=== PATIENT | female | born 2000 | race Two or more races ===

== ENCOUNTER 2020-05-03 07:34 | Outpatient (REF) | payer OTHER, SELFPAY | END 2020-05-03 07:35 | disposition home or self-care (01) | LOC: HO.LAB 07:34 | PROVIDERS: Visit Provider Internal Medicine | DX: Z20.828 Contact with and (suspected) exposure to other viral communicable diseases (principal) | CPT/HCPCS: C9803; U0003 ==

== ENCOUNTER 2024-03-03 09:58 | Outpatient (REF) | payer OTHER, SELFPAY ==
[2024-03-03 11:44] LABS: Amylase 50 U/L (28-100)
[2024-03-03 11:47] LABS: Basophils Percent Auto 0.5 % (0-2); Eosinophils Absolute Auto 0.2 X10*3/uL (0.0-0.4); Eosinophils Percent Auto 2.4 % (0-4); Hematocrit 40.1 % (37.0-47.0); Hemoglobin 13.3 g/dl (12.0-16.0); Imm Gran Abs Auto 0.04 X10*3/uL (0.00-0.03); Imm Gran Pct Auto 0.5 % (0.0-0.4); Lymphocytes Absolute Auto 1.9 X10*3/uL (1.2-4.9); Lymphocytes Percent Auto 25.2 % (20-40); MANUAL DIFF FLAG SCAN; Mean Corpuscular HGB Conc 33.2 g/dl (31.0-35.0); Mean Corpuscular Hemoglobin 28.2 pg (27.0-33.0); Mean Corpuscular Volume 85.1 fL (80.0-98.0); Monocytes Absolute Auto 0.7 X10*3/uL (0.1-1.2); Neutrophils Absolute Auto 4.7 x10*3/uL (2.0-8.3); Neutrophils Percent Auto 62.4 % (45-73); PLT CLUMP 1; Red Blood Count 4.71 X10*6/uL (4.20-5.50); Red Cell Distribution Width 14.3 % (11.0-16.0); SCAN SMEAR FLAG 1
[2024-03-03 11:52] LABS: Estimated Average Glucose 103 mg/dL; Hemoglobin A1c % 5.2 % (<6.0)
[2024-03-03 12:16] LABS: Alanine Aminotransferase 10 U/L (0-31); Albumin Level 3.8 g/dL (3.5-5.0); Alkaline Phosphatase 68 U/L (39-117); Anion Gap 11 (12-20); Aspartate Amino Transferase 15 U/L (5-31); Bilirubin Total 0.2 mg/dL (0.0-1.0); Blood Urea Nitrogen 5 mg/dL (9-16); Calcium 9.2 mg/dL (8.4-10.2); Carbon Dioxide 21 mmol/L (22-29); Chloride 111 mmol/L (96-108); Cholesterol 169 mg/dL (<200); Estimated Glomerular Filt Rate > 60; Glucose Random 97 mg/dL (60-115); HDL Cholesterol 53 mg/dL (>40); Iron 31 mcg/dL (30-160); LDL Cholesterol Calculated 104 mg/dL (<100); Lipase 24 U/L (8-78); Percent Iron Saturation 10 % (15-50); Sodium 139 mmol/L (135-145); TSH reflex Free T4 0.32 uIU/mL (0.32-4.0); Total Iron Binding Capacity 299 mcg/dL (228-428); Total Protein 7.2 g/dL (6.5-8.0); Triglycerides 63 mg/dL (<150); Unsaturated Iron Binding 268 ug/dL
[2024-03-03 12:44] LABS: White Blood Count 7.6 X10*3/uL (4.8-10.8)
[2024-03-03 12:45] LABS: Mean Platelet Volume 12.7 fL (9.4-12.3); Platelet Count 204 X10*3/uL (160-400); SLIDE REVIEW VERIFIED
[2024-03-03 13:02] LABS: Reflex LDLD? No
== END 2024-03-03 09:59 | disposition home or self-care (01) ==
LOC: HO.HHCL 09:58
PROVIDERS: Referring Provider Internal Medicine; Visit Provider Family Medicine
DX: Z00.00 Encounter for general adult medical examination without abnormal findings (principal); R11.10 Vomiting, unspecified; R19.7 Diarrhea, unspecified; Z86.2 Personal history of diseases of the blood and blood-forming organs and certain disorders involving the immune mechanism
CPT/HCPCS: 36415; 80053; 80061; 82150; 83036; 83540; 83690; 84443; 85025

== ENCOUNTER 2024-09-20 13:45 | Outpatient (AMB) | payer OTHER, SELFPAY ==
[2024-09-20 13:52] VITALS: BP 118/60; PULSE 71; BMI 43.3
--- NOTE | 2024-09-20 13:52 | MHC.OFFVIS ---
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 She does not have any history of cardiovascular issues including coronary disease, myocardial infarction or cardiomyopathy or in fact anything cardiac related. She gets symptoms of chest pressure/discomfort that can happen any time. With or without activity. Essentially random occurrence without any specific provoking factors. Hence, she has been referred for evaluation. Otherwise, no other symptoms like shortness of breath, palpitations, dizzy spells, syncopal episodes. No family history of any cardiomyopathy or sudden cardiac . [facility] Surgical History H/O colonoscopy Family History Mother Diabetes Father No problems noted. Social History Alcohol intake: current Alcohol intake frequency: a few times a week Alcohol type: wine Patient Tobacco Use Status: Never used Tobacco Substance Use Type: Marijuana Review of Systems Const Reports excessive sweating and Denies weakness ENT Denies dizziness Card Reports chest pain, Denies chest pain with activity, Denies syncope, Denies rapid heart rate, Denies pedal edema, Denies edema, Denies leg edema, Denies lightheadedness, Denies palpitations, Denies dyspnea, Denies dyspnea on exertion and Denies orthopnea Resp Denies cough, Denies dyspnea and Denies dyspnea on exertion GI Denies hematochezia and Denies change in stool character Musc Denies abnormal gait, Denies muscle cramps, Denies muscle weakness, Denies numbness, Denies radiating pain into limb and Denies tingling Neuro Denies abnormal gait, Denies dizziness, Denies syncope, Denies numbness, Denies tingling and Denies weakness Endo Reports excessive sweating and Denies palpitations Physical Exam Vital Signs: Last Vital Signs Pulse 71 09/20/24 13:52 BP 118/60 09/20/24 13:52 BMI result Body Mass Index 43.3 Const General: comfortable and no acute distress Orientation/consciousness: patient oriented x3 HEENT Other: Unremarkable Head: Yes normal to inspection Neck Neck: Yes normal visual inspection Chest Chest palpation & inspection: normal inspection of the chest Resp Auscultation: clear to auscultation bilaterally Cardio Palpation: normal PMI Heart sounds: S1 normal heart sound present, S2 normal heart sound present, no gallops, no murmurs and no rubs GI Palpation (GI): Soft to palpation Back/Spine/Pelvis Other: unremarkable Skin General skin exam: no rashes or lesions noted Neuro General: patient oriented x3 Extrem General: Yes normal to inspection Psych Mental Status: mental status grossly normal Office Procedures EKG Details: EKG with underlying sinus rhythm at 71/Min; no significant ST-T changes and otherwise unremarkable[place] [address]-Ttoxvftznrslfemsz, Complete Assessment & Plan Assessment & Plan (1) Precordial chest pain: Code(s): R07.2 - Precordial pain Category: Medical Plan Atypical sounding nonexertional chest pain. We will get an echocardiogram to look for any cardiomyopathy, pericardial effusion extra. If this is within normal limits, then reassurance only. Orders: Orders CA echo transthoracic complete Today R07.2 - Precordial pain Coding Level of Care Code New Pt Level 3 (99574) Diagnoses Precordial chest pain R07.2 CPT Codes EKG - CPT: 31910-Ldurcuwsystnvithy, Complete ([id number])
--- OUTSIDE RECORDS SUMMARY | 2024-09-20 15:56 | XMS_ITS | Encounter Summary ---
Author Organization [facility] Address [address] [place] [address] Phone Care Team Providers Care Alarm Technician Name Role Phone Katty Manning MD Primary Care Provider [phone] Reason for Visit * Reason Comments Med Refill Encounter Details Date Type Department Care Team (Late st Contact Info) Description 12/28/2018 Refill [facility] [place] [address] [place] [address] Mitra Terry MD [address] [place] [address] Encounter for initial prescription of contraceptive pills Social History Tobacco Use Types Packs/Day Years Used Date Smoking Tobacco: Never Smokeless Tobacco: Never Comments:Never smoker Alcohol Use Standard Drinks/Week Comments No 0 (1 standard drink = 0.6 oz pur e alcohol) Comments No Sex and Gender Information Value Date Recorded Sex Assigned at Female 07/14/2021 9:46 AM EST Legal Sex Female 5:22 PM EDT Gender Identity Female 07/14/2021 9:46 AM EST Sexual Orientation Bisexual 06/10/2020 10 :49 AM EST documented as of this encounter Plan of Treatment Not on file documented as of this encounter Visit Diagnoses Diagnosis Encounter for initial prescription of contraceptive pills documented in this encounter Care Teams Alarm Technician Relationship Specialty Start Date End Date Katty Manning MD [address] [place] [address] PCP - General 01/22/17 12/07/22 documented as of this encounter
--- OUTSIDE RECORDS SUMMARY | 2024-09-20 15:56 | XMS_ITS | Patient Health Record ---
Author Organization [facility] Address [address] [place] [address] Care Team Providers Care Polisher Aluminum Name Role Phone YOHAN HANSEN Unavailable [phone] Allergies No Known Allergies Results Component Value Reference Range Notes Chlamydia/GC Amplification-1 27556 Reviewed date:12/02/2023 11:25:47 AM Interpretation: Performing Lab:[facility], [address], [address], [place], Phone - [phone], Director - [facility] Notes/Report: Clinical Information:CERVICAL Chlamydia trachomatis, AMINA Negative Negative Neisseria gonorrhoeae, AMINA Negative Negative PDF Report Reviewed date:12/02/2023 09:41:49 AM Interpretation: Performing Lab:[facility], [address], [address], [place], Phone - [phone], Director - [facility] Notes/Report: Clinical Information:CERVICAL Reason For Referral No Information Medications Medication SIG (Take, Route, Frequency, Duration) Notes Start Date End Date Status Plan B One-Step 1.5 MG as directed Orally 11/24/19 23 Not-Taking Immunizations Vaccine Route Administration Date Status Comme nts GARDASIL 9 IM Intramuscular 11/23/2022 Administered Social History Tobacco Use: Social History Observation Description Date Details (start date - stop date) Never Smoker NA - NA Tobacco Use/Smoking Question Answer Notes Are you a nonsmoker Alcohol Screen (Audit-C) Question Answer Notes Did you have a drink contain ing alcohol in the past year? Yes How often did you have a dri nk containing alcohol in the past year? 2 to 4 times a month (2 points) How many drinks did you have on a typical day when you were drinking in the past year? 1 or 2 drinks (0 point) How often did you have 6 or more drinks on one occasion in the past year? Less than monthly (1 point) Points 3 Interpretation Positive Sexual History Question Answer Notes Had sex in the past 12 months (vaginal, oral, or anal)? Yes with Both Men and Women Use protection? No Problems Problem Type SNOMED Code ICD Code Onset Dates Problem Status W/U Status Risk Notes Problem COVID-19 ([id number]) COVID-19 (U07.1) Active confirmed Vital Signs Temperature 96.9 degrees Fahrenheit 11/29/2023 Blood pressure diastolic 86 mm Hg 11/29/2023 Height 65 in 11/29/2023 Blood pressure systolic 110 mm Hg 11/29/2023 Weight 261 lbs 11/29/2023 BMI 43.43 kg/m2 11/29/2023 Encounters Encounter Location Date Provider Diagnosis [facility] [address] [place] [address] 11/29/2023 YOHANLucie PEREZHANSEN Encounter for gynecological examination (general) (routine) without abnormal findings Z01.419 ; Encounter for screening for infections with a predominantly sexual mode of transmission Z11.3 and High risk bisexual behavior Z72.53 Assessments Encounter Date Diagnosis (ICD Code) Assessment Notes Treatment Notes Treatment Clinical Notes Section Notes 11/29/2023 Encounter for screening for infections with a predominantly sexual mode of transmission (ICD-10 - Z11.3) 11/29/2023 Encounter for gynecological examination (general) (routine) without abnormal findings (ICD-10 - Z01.419) Discussed cervical cancer screening with cytology every 3 years as per ASCCP guidelines. Advised continued annual pelvic exams. Patient encouraged to increase her level of exercise. SBE technique encouraged/tau ght. Safe sexual practices and STI prevention discussed. 11/29/2023 High risk bisexual behavior (ICD-10 - Z72.53) Plan Of Treatment Next Appt Details Provider Name:YOHAN COPELAND Sonal, 12/04/2024 01:40:00 PM, [address], [address], [place], [address], Insurance Providers Payer Name Payer Address Payer Phone Subscriber Number Group Number Insured Name Patient Relationship to Insured Coverage Start Date Coverage End Date [facility] [address] [place] [address] [id number] PHIL EPPS Self - patient is the insured Medical (General) History Medical History History ICD Code COVID-19 U07.1 Surgical History Surgery Date(Month/Year) colonoscopy 09/2017 wisdom teeth extraction 01/2015
--- OUTSIDE RECORDS SUMMARY | 2024-09-20 15:56 | XMS_ITS | Encounter Summary ---
Author Organization [facility] Address [address] [place] [address] Phone Care Team Providers Care Frame Coverer Name Role Phone Katty Manning MD Primary Care Provider [phone] Reason for Visit * Reason Comments Med Refill Encounter Details Date Type Department Care Team (Late st Contact Info) Description 11/08/2017 Refill [facility] [place] [address] [place] [address] Jennifer Davenport NP [address] [address] Encounter for initial prescription of contraceptive pills [...] AM EST documented as of this encounter Miscellaneous Notes * Telephone Encounter - Katty Manning MD - 11/09/2017 5:11 PM EDT Script sent. PPP * Telephone Encounter - Claudette Pittman MA - 11/09/2017 10:41 AM EDT Please refill the BC. PE current and last refill pt was given 3 refills. Message to PPP. documented in this encounter Plan of Treatment Not on file documented as of this encounter Visit Diagnoses Diagnosis Encounter for initial prescription of contraceptive pills documented in this encounter Care Teams Frame Coverer Relationship Specialty Start Date End Date Katty Manning MD [address] [facility] [place] [address] PCP - General 01/22/17 12/07/22 documented as of this encounter
--- OUTSIDE RECORDS SUMMARY | 2024-09-20 15:56 | XMS_ITS | Encounter Summary ---
Author Organization [facility] Address [address] [place] [address] Phone Care Team Providers Care Financial Economist Name Role Phone Katty Manning MD Primary Care Provider [phone] Encounter Details Date Type Department Care Team (Late st Contact Info) Description 05/19/2011 Documentation [facility] [place] [address] [place], [place] [id number] Family Medicine, Physician [address] [place], [place] [address] Social History Tobacco Use Types Packs/Day Years Used Date Smoking Tobacco: Never Assessed Comments Unknown Sex and Gender Information Value Date Recorded Sex Assigned at Female 07/14/2021 9:46 AM EST Legal Sex Female 5:22 PM EDT Gender Identity Female 07/14/2021 9:46 AM EST Sexual Orientation Bisexual 06/10/2020 10 :49 AM EST documented as of this encounter Plan of Treatment Not on file documented as of this encounter Visit Diagnoses Not on filedocumented in this encounter Care Teams Financial Economist Relationship Specialty Start Date End Date Katty Manning MD [address] [place] [address] [place] [address] PCP - General 01/22/17 12/07/22 documented as of this encounter
--- OUTSIDE RECORDS SUMMARY | 2024-09-20 15:57 | XMS_ITS | Encounter Summary ---
Author Organization [facility] Address [address] [place] [address] Care Team Providers Care Nursing Support Worker Name Role Phone Delfina Sen MD Primary Care Provide r Reason for Referral * Consultation (Routine) - Authorized Specialty Diagnoses / Procedures Referred By Jazmyne zhao Referred To Contact Optometry Diagnoses Diminished vision Delfina Sen MD [address] [place] [address] Phone: tel: fax: [facility] [address] [place] [address] Phone: tel: fax: Referral ID Status Reason Start Date Expiration Date Visits Requested Visits Authorized [id number] Authorized Consult and Treat 09/15/2024 09/15/2025 1 1 * Consultation (Routine) - Authorized Specialty Diagnoses / Procedures Referred By Contshahzad t Referred To Contact Orthopaedic Surgery Diagnoses Right hip pain Delfina Sen MD [address] [place] [address] Phone: tel: fax: [facility] [address] [place] [address] [address] [place], [place] Phone: tel: fax: Referral ID Status Reason Start Date Expiration Date Visits Requested Visits Authorized [id number] Authorized Specialty Services Required 09/15/2024 09/15/2025 1 1 Reason for Visit * Reason Comments Follow-up Encounter Details Date Type Department Care Team ([facility] st Contact Info) Description 09/15/2024 9:45 AM EDT Office Visit [facility] [address] [place] [address] Delfina Sen MD [address] [place] [address] Right hip pain (Primary Dx); Gastroesophageal reflux disease, unspecified whether esophagitis present; Anxiety; Cervical cancer screening; Diminished vision Social History Tobacco Use Types Packs/Day Years Used Date Smoking Tobacco: Never Passive Smoke Exposure: Never Smokeless Tobacco: Never Tobacco Cessation:Counseling Given: Not Answered Alcohol Answer Date Recorded Frequency of Alcohol Consumption Not on file 01/21/2024 Average Number of Drinks Not on file 024 Frequency of Binge Drinking Not on file 02/2024 Score 0 01/21/2024 Depression Answer Date Recorded Patient Health Questionnaire-9 Score 8 01/21/2024 Patient Health Questionnaire-9 Score 8 01/21/2024 Last PHQ-9: Questionnaire Data Not on file 0 01/21/2024 Housing Stability Answer Date Recorded What is your housing situation today? I have carmela lopez 01/11/[address] you li ve. Do you have problems with any of the following? None of the above 01/11/2024 Food Insecurity Answer Date Recorded Within the past 12 months, y ou worried that your food would run out before you got money to buy more: Never True 01/11/2024 Within the past 12 months,th e food you bought just didn't last and you didn't have enough money to get more: Never True Transportation Answer Date Recorded In the past 12 months, has l ack of transportation kept you from medical appts, meetings, work or from getting things needed for daily living? No 01/11/2024 Utilities Answer Date Recorded In the past 12 months, has t he electric, gas, oil or water [employer] threatened to shut off services in your home? No 01/11/2024 Depression Answer Date Recorded Patient Health Questionnaire-2 Score 2 01/21/2024 Internet Access Answer Date Recorded Internet Access Q1 Yes 02/14/2024 Internet Access Q2 Not on file 02/14/2024 Comments Unknown Sex and Gender Information Value Date Recorded Sex Assigned at Female 04/13/2022 10:31 AM EDT Legal Sex Female 10:31 AM EDT Gender Identity Female 12/20/2023 9:30 AM EDT Sexual Orientation Straight 12/20/2023 9: 30 AM EDT documented as of this encounter Last Filed Vital Signs Vital Sign Reading Time Taken Comments Blood Pressure 135/82 09/15/2024 10:19 AM EDT Pulse 106 09/15/2024 9:37 AM EDT Temperature 36.6 ??C (97.8 ??F) 09/15/2024 9:37 AM E DT Respiratory Rate 18 09/15/2024 9:37 AM EDT Oxygen Saturation 96% 09/15/2024 9:37 AM EDT Inhaled Oxygen Concentration - - Weight 120 kg (264 lb 3.2 oz) 09/15/2024 9:37 AM EDT Height 165.1 cm (5' 5 ) 09/15/2024 9:37 AM EDT Body Mass Index 43.97 09/15/2024 9:37 AM EDT documented in this encounter Progress Notes * Delfina Danielle MD - 09/15/2024 9:45 AM EDT SUBJECTIVE: Myrna Owusu is a 24 y.o. year old female who presents for follow up . Patient reports she has been doing well, reports her anxiety is much better controlled she tells mechest pressure went completely away and her GERD is completely resolved now Acute Concerns: Today patient explains to me she has an on and off pain on her right hip on the inner groin area today she is asking for me to refer her to an orthopedics Social History Social History Narrative Not on file Patient Active Problem List Diagnosis Abnormal laboratory test result Routine adult health maintenance Anxiety disorder BMI 35.0-35.9,adult Elevated cholesterol Irritation of left eye Sensation of chest pressure GERD (gastroesophageal reflux disease) Encounter for preventive health examination Right hip pain Anxiety Cervical cancer screening Diminished vision No family history on file. Review of Systems Constitutional: Negative. HENT: Negative. Respiratory: Negative. Cardiovascular: Negative. OBJECTIVE: Vitals: 09/15/24 0937 09/15/24 1019 BP: (!) 145/93 135/82 BP Location: Left arm Left arm Patient Position: Sitting BP Cuff Size: Large adult Pulse: 106 Resp: 18 Temp: 97.8 ??F (36.6 ??C) TempSrc: Temporal SpO2: 96% Weight: 264 lb 3.2 oz (120 kg) Height: 5' 5 (1.651 m) Physical Exam Constitutional: Appearance: Normal appearance. Cardiovascular: Rate and Rhythm: Normal rate and regular rhythm. Pulmonary: Effort: Pulmonary effort is normal. Breath sounds: Normal breath sounds. Abdominal: General: Abdomen is flat. Palpations: Abdomen is soft. Musculoskeletal: General: No tenderness. Right lower leg: No edema. Left lower leg: No edema. Neurological: Mental Status: She is alert. Follow Up: No follow-ups on file. Current Outpatient Medications on File Prior to Visit Medication Sig Dispense Refill Multiple Vitamins-Minerals (HAIR VITAMINS PO) Hair Vitamins No current facility-administered medications on file prior to visit. Problem List Items Addressed This Visit Right hip pain - Primary I will order an x-ray of the hip and as per patient request I will refer her to orthopedics Relevant Orders XR Hip 2 or 3 Views Right Referral to Orthopaedic Surgery GERD (gastroesophageal reflux disease) I advise patient to avoid NSAIDs, spicy and acid food, I advise to eat at the same time every day, I advise to elevate the head of the bed and take medications as prescribe Anxiety Continue to follow-up with therapist Cervical cancer screening Patient follows with gynecology [facility] Dr Kelley Shi reports last PAP 2 years ago normal records will be obtain Diminished vision Relevant Orders Referral to [facility] documented in this encounter Miscellaneous Notes * Assessment & Plan Note - Delfina Danielle MD - 09/15/2024 10:20 AM EDT Associated Problem(s): Anxiety Continue to follow-up with therapist * Assessment & Plan Note - Delfina Danielle MD - 09/15/2024 10:20 AM EDT Associated Problem(s): Right hip pain I will order an x-ray of the hip and as per patient request I will refer her to orthopedics * Assessment & Plan Note - Delfina Danielle MD - 09/15/2024 10:20 AM EDT Associated Problem(s): GERD (gastroesophageal reflux disease) I advise patient to avoid NSAIDs, spicy and acid food, I advise to eat at the same time every day, I advise to elevate the head of the bed and take medications as prescribe * Assessment & Plan Note - Delfina Danielle MD - 09/15/2024 9:59 AM EDT Associated Problem(s): Cervical cancer screening Patient follows with gynecology [facility] Dr Kelley Shi reports last PAP 2 years ago normal records will be obtain documented in this encounter Plan of Treatment Scheduled Orders Name Type Priority Associated Diagnoses Orde r Schedule XR Hip 2 or 3 Views Right Imaging Routine Right hip pain Expected: 09/15/2024, Expires: 09/15/2025 Scheduled Referrals Name Type Priority Associated Diagnoses Order Schedule Referral to Orthopaedic Surgery Outpatient Referral Routine Right hip pain Expected: 09/15/2024 (Approximate), Expires: 09/15/[address] [facility] Outpatient Referral Routine Diminished vision Expected: 09/15/2024 (Approximate), Expires: 09/15/2025 documented as of this encounter Visit Diagnoses Diagnosis Right hip pain- Primary Pain in joint, pelvic region and thigh Gastroesophageal reflux disease, unspecified whether esophagitis present Anxiety Anxiety state, unspecified Cervical cancer screening Screening for malignant neoplasm of the cervix Diminished vision Unspecified visual loss documented in this encounter Additional Health Concerns Assessment Noted Time PHQ-9 Depression Total Score: 8 01/21/20 24 11:17 AM EDT documented as of this encounter Care Teams Nursing Support Worker Relationship Specialty Start Date End Date Delfina Sen MD [address] [place] [address] PCP - General Internal Medicine 01/24/24 documented as of this encounter
--- OUTSIDE RECORDS SUMMARY | 2024-09-20 15:57 | XMS_ITS | Encounter Summary ---
Author Organization [facility] Address [address] [place] [address] Phone Care Team Providers Care Information Technology Analyst Name Role Phone Katty Manning MD Primary Care Provider [phone] Encounter Details Date Type Department Care Team (Late st Contact Info) Description 02/10/2010 Documentation [facility] [place] Family Medicine [address] [place], [place] [phone] Family Medicine, Physician [address] [place], [place] [address] Social History Tobacco Use Types Packs/Day Years [...] on filedocumented in this encounter Care Teams Information Technology Analyst Relationship Specialty Start Date End Date Katty Manning MD [address] [place] [address] [place] [id number] PCP - General 01/22/17 12/07/22 documented as of this encounter
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
--- OUTSIDE RECORDS SUMMARY | 2024-09-20 15:57 | XMS_ITS | Patient Health Record ---
Author Organization [facility] Address [address] [place] [address] Care Team Providers Care Experimental Worker Name Role Phone Nigel BYRNE, Katty Primary Care Provider David Chavarria Unavailable [phone] Allergies Allergen (clinical drug ingredient) Drug/Non Drug Allergy documented on EMR Reaction Allergy Type Onset Date Status apple allergenic extract Apple (Diagnostic) Unknown Drug Allergy Active cantaloupe allergenic extract Cantaloupe (Diagnostic) Unknown Drug Allergy Active Reason For Referral No Information Medications Medication SIG (Take, Route, Frequency, Duration) Notes Start Date End Date Status Hair Vitamins Active Immunizations Vaccine Route Administration Date Status Comme nts COVID-19 Moderna Vaccine Unknown 10/17/2020 Administere d 1st 09/17/2020 Influenza Unknown 02/12/2021 Administered Social History Tobacco Use: Social History Observation Description Date Details (start date - stop date) Never Smoker NA - NA Tobacco Use/Smoking Question Answer Notes Are you a: nonsmoker Additional Findings: Tobacco Non-User Current no n-smoker Alcohol Screen Question Answer Notes Did you have a drink containing alcohol in the p ast year? No Points 0 Interpretation Negative Tobacco use other than smoking: Question Answer Notes Are you an other tobacco user? No Plan Of Treatment No Information Insurance Providers Payer Name Payer Address Payer Phone Subscriber Number Group Number Insured Name Patient Relationship to Insured Coverage Start Date Coverage End Date [facility] [address] [place] [address] [id number] Myrna Owusu Self - patient is the insured Medical (General) History Medical History History ICD Code Anemia Anxiety Depression high Cholesterol Surgical History Surgery Date(Month/Year)
--- OUTSIDE RECORDS SUMMARY | 2024-09-20 15:57 | XMS_ITS | Encounter Summary ---
Author Organization [facility] Address [address] [place] [address] Care Team Providers Care Production Boring Machine Operator Name Role Phone Delfina Sen MD Primary Care Provide r Encounter Details Date Type Department Care Team (Latest Contact Info) Description 09/15/2024 Travel Social History Tobacco Use Types Packs/Day Years Used Date Smoking Tobacco: Never Passive Smoke Exposure: Never Smokeless Tobacco: Never Alcohol Answer Date Recorded Frequency of Alcohol [...] AM EDT documented as of this encounter Plan of Treatment Not on file documented as of this encounter Visit Diagnoses Not on filedocumented in this encounter Additional Health Concerns Assessment Noted Time PHQ-9 Depression Total Score: 8 01/21/20 24 11:17 AM EDT documented as of this encounter Care Teams Production Boring Machine Operator Relationship Specialty Start Date End Date Delfina Sen MD [address] [place] [address] PCP - General Internal Medicine 01/24/24 documented as of this encounter
--- OUTSIDE RECORDS SUMMARY | 2024-09-20 15:57 | XMS_ITS | Clinical Summary ---
Author Organization [facility] Address [address] [place] [id number] Phone Care Team Providers Care Assessment Counselor Name Role Phone Unavailable Primary Care Provider Unavailabl e Allergies Active Allergy Reactions Criticality Noted Date Comments Apple (Diagnostic) Rash Low 05/21/2021 Cantaloupe (Diagnostic) Rash Low 05/21/2021 Medications Multiple Vitamins-Minerals (HAIR VITAMINS PO) A ctive erythromycin ophthalmic ointment 07/10/2021 Active minoxidil 2.5 MG tablet 06/18/2021 Active Active Problems Problem Noted Date Diagnosed Date BMI 35.0-35.9,adult 02/20/2021 Assessment & Plan (02/20/2021 4:41 PM EDT): Good you have lost weight. Should see Cyndi Allen in consultation Elevated cholesterol 07/04/2020 Overview (07/04/2020): Jun 2020 Non HDL 130. Advised healthy eating and exercise Assessment & Plan (02/20/2021 4:38 PM EDT): Should recheck, is trying to eat healthier. Anxiety disorder 06/27/2020 Immunizations Immunization Administration Dates Next Due COVID-19 Pfizer, lisa-sucros e, 12+ years 07/14/2021 DTaP 5 01/21/2006, 2,02/24/2001,12/28,2000 HPV, Quadrivalent 07/20/2012,03/18/2012,01/13/20 12 Hep A, ped/adol 04/27/2014,12/22/2010 Hep B, ped/adol 02/24/2001,2000,2000 Hib (PRP-T) 12/08/2001, 1,2000,10/26 IPV 01/21/2006, 2,2000,10/26 Influenza Split 04/18/2012 Influenza, injectable, quadr ivalent, preservative free 02/20/2021,06/10/2020 Influenza, injectable, triva lent, preservative free 02/12/2021 MMR 01/23/2005,09/07/2001 Meningococcal Conj (Menactra) MCV4P 06/22/2017,0 01/13/2012 Pneumococcal Conjugate 02/24/2001,2000, Tdap 01/13/2012 Varicella 11/26/2008,09/07/2001 Family History Medical History Relation Name Comments Obesity Father Pierre Obesity Mother Rachell Relation Name Status Comments Brother Landon Alive Brother: Alive and well Father Pierre Alive Father: Alive a nd well Mother Rachell Alive Mother: Alive a nd well Other Family history of Obesity, No family history of *Thrombophilia, No family history of *CVA/Stroke, Family history of Diabetes mellitus, No family history of *Heart Disease, No family history of *Dental caries, Family history of Strabismus/amblyopia, No family history of *Sudden /VA under 55 Social History Tobacco Use Types Packs/Day Years Used Date Smoking Tobacco: Never Smokeless Tobacco: Never Tobacco Cessation:Counseling Given: Yes Comments:Never smoker Alcohol Use Standard Drinks/Week Comments No 0 (1 standard drink = 0.6 oz pur e alcohol) Hunger/Food Answer Date Recorded In the last 12 months, did y ou or your family ever eat less than you felt you should because there wasn't enough money for food? No 07/14/2021 Stable Housing Answer Date Recorded Are you worried that in the next 2 months you may not have stable housing? No 07/14/2021 Transportation Concerns Answer Date Rec orded In the last 12 months, have you or your family ever had to go without healthcare because you didn't have a way to get there? No 07/14/2021 Hazards in Home Answer Date Recorded Think about the place you li ve. Do you have problems with any of the following? Pests (mice or roaches), mold, no/not working smoke detectors, water leaks, no window guards. No 2021 Financing Utilities Answer Date Recorde d In the last 12 months, has t he electric, gas, oil, or water company threatened to shut off your services in your home? No 07/14/2021 Safety at Home Answer Date Recorded Are you or your family worried about feeling saf e in your home? No 07/14/2021 Outside Support Answer Date Recorded Do you feel that you need mo re support from other people or programs to help you care for yourself or your family? No 07/14/2021 Understanding Health Concerns Answer Da te Recorded Do you need help understandi ng your or your child's healthcare needs (diagnosis, medications, plan, etc.)? No 07/14/2021 Financing Health Concerns Answer Date R ecorded In the last 12 months, was t here a time when your child needed to see a doctor or get medications or supplies but could not because of cost? No 07/14/2021 Missing School or Work Answer Date Donis rded Did you or your child miss s chool or work because of a health problem that could have been avoided? No 07/14/2021 Comments No Sex and Gender Information Value Date Recorded Sex Assigned at Female 07/14/2021 9:46 AM EST Legal Sex Female 5:22 PM EDT Gender Identity Female 07/14/2021 9:46 AM EST Sexual Orientation Bisexual 06/10/2020 10 :49 AM EST Last Filed Vital Signs Vital Sign Reading Time Taken Comments Blood Pressure 119/77 07/14/2021 9:10 AM EST Pulse 88 07/14/2021 9:10 AM EST Temperature 36.2 ??C (97.1 ??F) 07/14/2021 9:10 AM ES T Respiratory Rate - - Oxygen Saturation - - Inhaled Oxygen Concentration - - Weight 95.2 kg (209 lb 12.8 oz) 07/14/2021 9:10 AM EST Height 163 cm (5' 4.17 ) 07/14/2021 9:10 AM EST Body Mass Index 35.82 07/14/2021 9:10 AM EST Plan of Treatment Health Maintenance Due Date Last Done Comments DTaP,Tdap,and Td Vaccines (7 - Td or Tdap) 01/12/2022 01/13/2012, 01/21/2006, 03/07/2002, Additional history exists HIV Screening 07/14/2022 07/14/2021 Syphilis Screening (consider for higher risk patients) 07/14/2022 07/14/2021 Influenza Vaccines (#1) 2024 04/06/20 22, 02/20/2021, 02/12/2021, Additional history exists COVID-19 Vaccine ( season) 2024 07/14/2021, 10/17/2020, 09/17/2020 Hepatitis B Vaccines Completed 02/24/2001, 2000, 2000 Pneumococcal Vaccine Aged Out 02/24/2001, 2000, 2000 No longer eligible based on patient's age to complete this topic HIB Vaccines Completed 12/08/2001, 02/12, 2000, Additional history exists MMR Vaccines Completed 01/23/2005, 09/07/2001 IPV Vaccines Completed 01/21/2006, 11/13, 2000, Additional history exists Varicella Vaccines Completed 11/26/2008, 09/07/2001 HPV Vaccines Completed 07/20/2012, 10/2011, 01/13/2012 Hepatitis A Vaccines Completed 04/27/2014, 12/23/19 11 Meningococcal Vaccine Completed 06/22/2017, 012 Men B Vaccine Aged Out No longer elig ible based on patient's age to complete this topic Procedures * Due to [place] [employer] law, this organization might not be sharing sensitive test results. Procedure Name Priority Date/Time Associated Diagnosis Comments RPR Routine 07/14/2021 10:20 AM EST Routine screening for STI (sexually transmitted infection) CHLAMYDIA AND GONORRHEA, AMPLIFIED Routine 07/14/2021 10:06 AM EST Encounter for screening examination for chlamydial infection from Last 3 Months or Most Recently Relevant to Health Maintenance Results * Due to [place] [employer] law, this organization might not be sharing sensitive test results. * RPR (07/14/2021 10:20 AM EST) SYPHILIS SCREEN BY MUMTAZ NEGATIVE (NEG) [facility] Comment: Reference range: Negative This test was performed on the [employer] Analyst immunoassay system. RPR Titer NOT INDICATED [facility] T pallidum Antibodies (TP-PA) NOT INDICATED [facility] SYPHILIS INTERPRETATION Indicative of the absence of infection with Treponemal pallidum. Test may be negative in cases of incubating or early primary syphilis. Consider repeat testing in several weeks if clinical suspicion is high. [facility] Comment: Testing performed or reported by [facility], a Service of [facility] [address], [place] [address] Newton Tilley MD, Pin Machine Tender [facility]# [id number] Blood (Blood, Venous) 07/14/2021 10:20 AM EST 07/14/2021 10:31 AM EST us Thi De León MANAGER BILLING LAB BLOOD ORDERABLES Final Resul t [facility] * Chlamydia and Gonorrhoea, Amplified (07/14/2021 10:06 AM EST) Pathologist [facility] Chlamydia Trachomatis, DNA Probe NEGATIVE (NEG) [facility] Comment: No Chlamydia Trachomatis RNA detected in this patient's sample ? (REFERENCE RANGE/NORMAL VALUE: NOT DETECTED) ? Note: This test uses hat ironer- mediated amplification method to detect rRNA from C. Trachomatis URINE GC AMP PROBE NEGATIVE (NEG) [facility] Comment: No Neisseria Gonorrhoeae RNA detected in this patient's sample ? (REFERENCE RANGE/NORMAL VALUE: NOT DETECTED) ? NOTE: This test uses hat ironer-mediated amplification method to detect rRNA from N.Gonorrhoeae. A negative result does not preclude infection. In the case of a negative urine result, testing of an endocervical(female) or urethral (male) specimen is recommended if there is high clinical suspicion of infection. Due to very high sensitivity of Nucleic Acid Amplification Test, false positive results may occur. Therefore, specimen handling is extremely important. In patients in whom the disease is unlikely, additional sample for testing should be considered after an initial positive result. The performance characteristics of this test have not been evaluated in children. The Aptima Combo2 assay is not intended for the evaluation of suspected sexual abuse or for other medico-legal indications. The ordering provider should assess if the patient had consensual sex without risk of sexual abuse. Consult the [facility] if needed. Contact phone number . Therapeutic failure or success cannot be determined with the Aptima Combo2 assay since nucleic acid may persist following appropriate antimicrobial therapy. The Centers for Disease Control and Prevention (CDC) recommends confirmatory retesting using culture or a different nucleic acid amplification test when positive results occur, if indicated. Testing performed or reported by [facility], a Service of [facility], [facility] [address], [place] [address] Newton Tilley MD, Pin Machine Tender [facility]# [id number] Urine (Urine) 07/14/2021 10: 06 AM EST 07/14/2021 5:24 PM EST us Thi De León NP LAB MICROBIOLOGY - GENERAL ORDER JOSÉ Final Result [facility] from Last 3 Months or Most Recently Relevant to Health Maintenance
--- OUTSIDE RECORDS SUMMARY | 2024-09-20 15:57 | XMS_ITS | Encounter Summary ---
Author Organization [facility] Address [address] [place] [id number] Phone Care Team Providers Care Corrugator Machine Operator Name Role Phone Katty Manning MD Primary Care Provider [phone] Encounter Details Date Type Department Care Team (Late st Contact Info) Description 05/18/2012 Documentation [facility] Family Medicine [address] [place], [place] [id number] Family Medicine, Physician [address] [place], [place] [id number] Social History Tobacco Use Types Packs/Day Years [...] on filedocumented in this encounter Care Teams Corrugator Machine Operator Relationship Specialty Start Date End Date Katty Manning MD [address] [place] [address] [place] [id number] PCP - General 01/22/17 12/07/22 documented as of this encounter
--- OUTSIDE RECORDS SUMMARY | 2024-09-20 15:57 | XMS_ITS | Data Portability ---
Author Organization [facility]RAYAN Lucas s, [address] Address [address] [place] [address] Assessment No assessment recorded. Plan of Treatment Reminders Order Date Submit Date Provider Last Modified By Organization Details Last Modified Time Details Appointments None recorded. Lab None recorded. Referral None recorded. Procedures None recorded. Surgeries None recorded. Imaging XR, foot, 3 or more view 2022 023 JETHRO [facility], [address] [place] [address], [address], 15:58:52 Medication Orders ibuprofen 800 mg tablet 2022 023 [email or web address] [id number], [address] [facility], [place], [address], 14:40:38 Patient TargetsNo targets recorded. Patient Instructions Encounter Date Encounter Id Patient Instructions Last Modified By Organization Details Last Modified Time 07/06/2022 [id number] learning about rice (rest, ice, compression, and elevation) [email or web address] Not available 07/06/2022 13:42:38 What is a toe fracture? A fracture is another word for a broken bone. A toe fracture is when a person breaks a bone in the toe (figure 1). There are different types of toe fractures. The type of toe fracture depends on which toe bone breaks and how it breaks. What are the symptoms of a toe fracture? Symptoms of a toe fracture can include: ? Pain ? Swelling ? Bruising ? Trouble walking ? A crooked-looking toe Is there a test for a toe fracture? Yes. Your doctor or nurse will ask about your symptoms and do an exam. They can also order imaging tests like an X-ray or ultrasound. (Imaging tests create pictures of the inside of the body.) How is a toe fracture treated? Treatment depends on the type of toe fracture you have and how severe it is. Treatment for a toe fracture usually involves: ? Resting your foot ? Raising your foot above the level of your heart, for example, by propping it up on pillows ? This is helpful only for the first few days after an injury. ? Putting ice on your toe ? Put a cold gel pack, bag of ice, or bag of frozen vegetables on the toe every 1 to 2 hours, for 15 minutes each time. Put a thin towel between the ice (or other cold object) and your skin. Use the ice (or other cold object) for at least 6 hours after the injury. Some people find it helpful to ice up to 2 days after the injury. ? Martin taping (figure 2) ? This involves taping the injured toe to the toe next to it. The doctor or nurse will put some cotton or other soft material between your toes so they don't rub together. ? Wearing a cast, special hard-soled shoe, or rigid boot ? Most people can put weight on their foot and walk around while wearing a cast. Before your doctor puts a cast on your foot, they will make sure your toe bones are in the correct position. If your bones are not in the correct position, they might need to do a procedure to put your bones back in the correct position. Your doctor will also treat your pain. If you have a lot of pain or a severe fracture, your doctor will prescribe a strong pain medicine. If your fracture is mild, your doctor might recommend that you take an apac-uak-hovoyvq pain medicine. Gcsx-xfl-lehynyw pain medicines include acetaminophen (sample brand name: Tylenol), ibuprofen (sample brand names: Advil, Motrin), and naproxen (sample brand name: Aleve). How long does a toe fracture take to heal? A toe fracture usually takes weeks to heal, depending on the type of fracture. Healing time also depends on the person. Healthy children usually heal much more quickly than older adults or adults with other medical problems. Can I do anything to improve the healing process? Yes. It's important to follow all of your doctor's instructions while your fracture is healing. This includes instructions about when you can put weight on your foot. Doctors also usually recommend that people with a fracture: ? Eat a healthy diet that includes getting enough calcium, vitamin D, and protein (figure 3). ? Avoid getting the cast wet, if it's a cast that shouldn't get wet. ? Stop smoking. Fractures can take longer to heal if you smoke. When should I call my doctor or nurse? After treatment, your doctor or nurse will tell you when to call them. In general, you should call if: ? You have severe pain in your foot or leg. ? Your pain, swelling, or bruising gets worse. ? You have numbness or tingling in your toes. ? You damage your cast or get it wet, and it's not supposed to get wet. ? Your cast is too tight or too loose. information from ([facility], 2021) [email or web address] Not available 07/06/2022 13:36:35 Overview Foot injuries that cause pain and swelling are fairly common. Almost all sports or home repair projects can cause a misstep that ends up as foot pain. Normal wear and tear, especially as you get older, also can cause foot pain. Most minor foot injuries will heal on their own, and home treatment is usually all you need to do. If you have a severe injury, you may need tests and treatment. Follow-up care is a bowie part of your treatment and safety. Be sure to make and go to all appointments, and call your doctor or nurse advice line (811 in most provinces and territories) if you are having problems. It's also a good idea to know your test results and keep a list of the medicines you take. How can you care for yourself at home? Take pain medicines exactly as directed. If the doctor gave you a prescription medicine for pain, take it as prescribed. If you are not taking a prescription pain medicine, ask your doctor if you can take an qmrs-qun-yjxappm medicine. Rest and protect your foot. Take a break from any activity that may cause pain. Put ice or a cold pack on your foot for 10 to 20 minutes at a time. Put a thin cloth between the ice and your skin. Prop up the sore foot on a pillow when you ice it or anytime you sit or lie down during the next 3 days. Try to keep it above the level of your heart. This will help reduce swelling. Your doctor may recommend that you wrap your foot with an elastic bandage. Keep your foot wrapped for as long as your doctor advises. If your doctor recommends crutches, use them as directed. Wear roomy footwear. As soon as pain and swelling end, begin gentle exercises of your foot. Your doctor can tell you which exercises will help. When should you call for help? Call 911 anytime you think you may need emergency care. For example, call if: Your foot turns pale, white, blue, or cold. Call your doctor or nurse advice line now or seek immediate medical care if: You cannot move or stand on your foot. Your foot looks twisted or out of its normal position. Your foot is not stable when you step down. You have signs of infection, such as: Increased pain, swelling, warmth, or redness. Red streaks leading from the sore area. Pus draining from a place on your foot. A fever. Your foot is numb or tingly. Watch closely for changes in your health, and be sure to contact your doctor or nurse advice line if: You do not get better as expected. You have bruises from an injury that last longer than 2 weeks. [email or web address] Not available 07/06/2022 13:35:10 Reason for Referral None Reported. Results Created Date Observation Date Name Description Value Unit Range Abnormal Flag Note LastModifiedBy Organization Detail LastModifiedTime 07/06/1907/06/2022 XR, foot, 3 or more view No observ ation record ed. [email or web address] [facility] [address] [place], [address], 07/07/2022 17:52:45 07/08/1907/06/2022 XR, foot, 3 or more view No observ ation record ed. [email or web address] [facility] [address] [place], [address], 07/08/2022 16:06:03 07/08/1907/06/2022 imagi ng/di ginaos tic resul t No observ ation record ed. [email or web address] Not Available 2022 16:25:21 Result Notes None recorded. Problems No Known Problems Procedures Surgical History Date Name Laterality Status Provider Name and Address Organization Details Recorded Time Roel Bandage completed Rigoruby Nava, OCEANOGRAPHER PHYSICAL [address], [place], [address], [place] - [facility] 07/06/2022 14:37:46 Imaging Results Imaging Date Name Status LastModified by Organiz ation Details LastModified Time 07/06/2022 XR, foot, 3 or more view completed [email or web address] [facility] [address] [place], [address], 07/07/2022 17:52:45 07/06/2022 XR, foot, 3 or more view completed [email or web address] [facility] [address] [place], [address], 07/08/2022 16:06:03 07/06/2022 imaging/diag nostic result completed [email or web address] Information not available 07/08/2022 16:25:21 Procedure Notes None recorded. Medical Equipment None Reported. Allergies No known drug allergies Medications Name Sig Start Date Stop Date Status Note LastModified by Organization Details LastModified Time ibuprofen 800 mg tablet Take 1 tablet 3 times a day by oral route with meals for 7 days. 023 active Not Available Not Available Not Avai lable Vitals Date Recorded Body height Body mass index (BMI) Body weight Oxygen saturation Oxygen saturation in Arterial blood by Pulse oximetry Heart rate Respiratory rate Body temperature Systolic blood pressure Diastolic blood pressure Provider Name and Address Organization Details Last Updated DateTime 3 165.1 cm 38.3 kg/m2 905146. 25 g 99 % 99 % 70 /min 20 /min 98.2 [degF] 125 mm[Hg] 91 mm[Hg] Karoline Fitzpatrick PA - [facility] 12:10:31 Social History Question Answer Notes LastModified by Organfranciaat ion Details LastModified Time Tobacco Smoking Status Never Smoker Karoline dorman [place] - [facility] 07/06/2022 12:08:21 What Is Your Level Of Alcohol Consumption? Occasional Information not available 07/06/2022 How Many Times Per Week Do You Consume Alcohol? <1 Time Per Week Information not available 07/06/2022 Have You Had Direct Contact, Or Contact During Intimacy, With Monkeypox Rash, Scabs, Or Body Fluids From A Person With Monkeypox? No Information not available 07/06/2022 Do You Use Any Illicit Or Recreational Drugs? No Information not available 07/06/2022 Have You Recently Traveled Abroad? No Information not available 07/06/2022 Do You Or Have You Ever Used Any Other Forms Of Tobacco Or Nicotine? No Information not available 07/06/2022 Sex: Unknown Functional Status None recorded. Mental Status None recorded. Family History Relationship Description Onset Age of this Age Resolved Age Notes LastModified by Organization Details LastModified Time Father No current problems or disability Not available 07/06 12:08:11 Mother No current problems or disability Not available 07/06 12:08:11 Medical History No medical history recorded. Gynecological HistoryNo gynecological history recorded. Obstetrics History GPAL:G 0 P 0 0 0 0 Immunizations Vaccine Type Date Status Note Provider Nam e and Address Organization Details Recorded Time meningococcal MCV4P 8 completed Karoline Anadarko null, [place] - [facility] 07/06/2022 12:08:00 COVID-19, mRNA, LNP-S, PF, 100 mcg/0.5mL dose or 50 mcg/0.25mL dose 1 completed Karoline Nanette null, [place] - [facility] 07/06/2022 12:08:00 COVID-19, mRNA, LNP-S, PF, 100 mcg/0.5mL dose or 50 mcg/0.25mL dose 1 completed Karoline Nanette null, [place] - [facility] 07/06/2022 12:08:00 Influenza, MDCK, quadrivalent, PF 2 completed Karoline Nanette null, [place] - [facility] 07/06/2022 12:08:00 Influenza, split virus, quadrivalent, PF 1 completed Karoline Nanette null, [place] - [facility] 07/06/2022 12:08:00 Influenza, split virus, quadrivalent, PF 0 completed Karoline Anadarko null, [place] - [facility] 07/06/2022 12:08:00 COVID-19, mRNA, LNP-S, PF, 30 mcg/0.3 mL dose, lisa-sucrose 2 completed Karoline Nanette null, [place] - [facility] 07/06/2022 12:08:00 Past Encounters Encounter ID Performer Location Encounter Start Date Encounter Closed Date Diagnosis/Indication Diagnosis SNOMED-CT Code Diagnosis ICD10 Code Diagnosis Note [id number] [address] [place] [address] 04/06/2022 11:13:18 04/06/2022 11:34:09 [id number] [address] [place] [address] 05/18/2015 13:01:46 05/18/2015 14:11:34 [id number] [address] [place] [address] 04/06/2022 08:40:15 04/06/2022 11:34:06 [id number] Rigo Nava, SHARIF [address] [place] [address] 07/06/2022 11:21:03 07/06/2022 14:50:58 Contusion of left foot [id number] 1473658 S90.32XA Contusion of lesser toe of left foot 2758680476 0365190 S90.122A Health Concerns Section Related Observation LastModified by Organization Detai ls LastModified Time None Recorded Concern Status LastModified by Organization Details LastModified Time None Recorded Advance Directives Directive None Recorded Payers Encounter Date Sequence Insurance Name Policy Number Policy Hazel Covered Member ID Hazel Member ID Guarantor Name 04/06/2022 1 [facility] [id number] 1 Myrna Chirag Owusu [id number] Myrna Owusu 04/06/2022 1 [facility] [id number] 1 Myrna M Owusu [id number] Myrna Owusu 07/06/2022 1 [facility] [id number] 1 Myrna Owusu [id number] Myrna Owusu Notes Date Note Type Note Provider Name and Address Organization Details Recorded Time 07/06/2022 text/html ToesReported bypatient.Notes:st ubbed left 4th toe after experiencing fall yesterday going downstairs. Rigo Nava NP [address] [place], [address], [place] - [facility] 07/06/2022 14:40:49 OBGyn Episode No OBEpisode recorded.
--- OUTSIDE RECORDS SUMMARY | 2024-09-20 15:57 | XMS_ITS | Encounter Summary ---
Author Organization [facility] Address [address] [place] [address] Phone Care Team Providers Care Solutions Engineer Name Role Phone Katty Manning MD Primary Care Provider [phone] Encounter Details Date Type Department Care Team (Late st Contact Info) Description 11/10/2016 Documentation [facility] Family Medicine [address] [place], [place] [id number] Family Medicine, Physician [address] [place], [place] [address] Social History Tobacco Use Types Packs/Day Years [...] on filedocumented in this encounter Care Teams Solutions Engineer Relationship Specialty Start Date End Date Katty Manning MD [address] [place] [address] [place] [address] PCP - General 01/22/17 12/07/22 documented as of this encounter
== END 2024-09-20 14:22 | disposition home or self-care (01) ==
LOC: HO.HCS 13:45
PROVIDERS: PCP Internal Medicine; Visit Provider Internal Medicine
DX: R07.2 Precordial pain (principal)
CPT/HCPCS: 93010; 99203

== ENCOUNTER → 2024-09-20 13:45 | Outpatient (BNVA) | payer OTHER, SELFPAY | PROVIDERS: PCP Internal Medicine; Visit Provider Internal Medicine | DX: R07.2 Precordial pain (principal) | CPT/HCPCS: 93005 ==

== ENCOUNTER → 2024-10-16 14:45 | Outpatient (REF) | payer OTHER, SELFPAY ==
--- NOTE | 2024-10-16 14:48 | CA_ITS ---
Transthoracic Echocardiogram Patient (Last, First, Middle): Myrna Owusu, Gender: Female Date of : 2000 Age: 24 Procedure Date: 10/16/2024 Procedure Type: Transthoracic Echocardiogram Location: OP Height: 165.1 cm Weight: 117.94 kg BSA: 2.21 m2 Heart Rate: bpm BP: 118 / 60 mmHg Investigative Writer: FABIAN Referring MD: Pasquale Multani MD Symptoms: R07.2 - Precordial pain Study Quality: Adequate with contrast ECG Rhythm: Sinus Conclusions: - The left ventricular systolic function is normal. The visually estimated ejection fraction is between 60-65%. - No obvious valvular pathology seen on this study. Findings Procedure Information Contrast agent, definity, is being given per protocol without apparent complications. Left Ventricle Normal left ventricular cavity size. There is normal left ventricular wall thickness. The left ventricular systolic function is normal. The visually estimated ejection fraction is between 60-65%. There is no evidence of regional wall motion abnormalities. Diastolic function is normal for age. Right Ventricle Normal right ventricular cavity size and systolic function. Atria Both atria are normal in size. Aortic Valve There is a normal trileaflet aortic valve. There is no aortic valve stenosis. There is no aortic valve regurgitation. Mitral Valve The mitral valve appears normal. There is no mitral valve regurgitation. There is no mitral valve stenosis. Pulmonic Valve The pulmonic valve is likely normal. Tricuspid Valve There is trace tricuspid valve regurgitation. There is no evidence of pulmonary hypertension. Great Vessels The asc aorta and aortic arch are normal in size. Venous The inferior vena cava is normal in size and collapses greater than 50% with inspiration. Pericardium/Pleural There is no evidence of pericardial effusion. Prior Study Comparison No prior study available for comparison. Recommendations, Care & Conclusions No obvious valvular pathology seen on this study. Measurements 2D Linear Measurements IVSd: 0.89 0.6-0.9/0.6-1.0 cm LVIDd: 4.55 3.9-5.3/4.2-5.9 cm LVIDd Index: 2.06 2.4-3.2/2.2-3.1 cm/m2 LVIDs: 2.94 2.0-3.6 cm LVPWd: 0.82 0.7-1.1 cm LA Diam: 3.30 2.7-3.8/3.0-4.0 cm LAIDs Index: 1.49 1.5-2.3 cm/m2 LV Mass: 156.92 67-162/88-224 g LV Mass Index: 71.00 43-95/49-115 g/m2 LVOT Diam: 2.00 3.0+(-)1.3 cm 2D Systolic Function EF 4C: 66.60 >55% EF 2C: 65.30 >55% EF BiP: 67.20 >55% Mitral Valve MV Pk E: 0.85 MV PK A: 0.74 MV Decel Time: 164.00 E/A: 1.20 E'Lateral: 14.00 E'Medial: 9.36 E/E' Med: 9.10 E/E' Lat: 6.10 PHT: 48.00 MVA PHT: 4.58 Decel [place]: 5.18 Aortic Valve AoV Pk Partha: 1.35 AoV Mn Partha: 0.94 AoV VTI: 0.29 AoV Pk Grad: 7.00 Aov Mn Grad: 4.00 PERRY Cont.VTI: 2.52 LVOT LVOT Pk Partha: 0.97 LVOT Mn Partha: 0.58 LVOT VTI: 0.23 LVOT Pk Grad: 4.00 LVOT Mn Grad: 2.00 LVOT Diam: 2.00 LVOT Area: 3.14 Diastolic Function MV Pk E: 0.85 MV Pk A: 0.74 E/A: 1.20 E'Medial: 9.36 E/E' Med: 9.10 E' Laterial: 14.00 E/E' Lat: 6.10 Right Ventricle TAPSE (mm): 26.90 TVS' Partha: 12.60 Tricuspid Valve TR Pk Partha: 1.63 TR Pk Grad: 11.00 RA Press: 3.00 RVSP: 14.00 Great Vessels Aorta Sinus of Valsalva: 2.92 2.0-3.[address] Ridge: 2.70 1.7-3.4 cm Ao Asc: 2.70 2.1-3.4 cm Ao Arch: 2.40 Updated in Other Vendor System with Status of Final Pasquale Multani MD electronically signed on 10/17/2024 3:19:53 PM with status of Final
--- OUTSIDE RECORDS SUMMARY | 2024-10-16 16:19 | XMS_ITS | Patient Health Record ---
Author Organization [facility] Address [address] [place] [address] Care Team Providers Care Type Casting Machine Operator Name Role Phone YOHAN HANSEN Unavailable [phone] Allergies No Known Allergies Results Component Value Reference Range Notes PDF Report Reviewed date:12/02/2023 09:41:49 AM Interpretation: Performing Lab:[facility], [address], [place], Phone - [phone], Director - [facility] Notes/Report: Clinical Information:CERVICAL Chlamydia/GC Amplification-1 [id number] Reviewed date:12/02/2023 11:25:47 AM Interpretation: Performing Lab:[facility], [address], [address], [place], Phone - [phone], Director - [facility] Notes/Report: Clinical Information:CERVICAL Chlamydia trachomatis, AMINA Negative Negative Neisseria gonorrhoeae, AMINA Negative Negative Reason For Referral No Information Medications Medication [...] Status W/U Status Risk Notes Problem COVID-19 ([id number]) COVID-19 (U07.1) Active confirmed Vital Signs Temperature 96.9 degrees Fahrenheit 11/29/2023 Blood pressure diastolic 86 mm Hg 11/29/2023 Height 65 in 11/29/2023 Blood pressure systolic 110 mm Hg 11/29/2023 Weight 261 lbs 11/29/2023 BMI 43.43 kg/m2 11/29/2023 Encounters Encounter Location Date Provider Diagnosis [facility] [address] [place] [address] 11/29/2023 YOHANLucie PEREZHANSEN Encounter for gynecological examination [...] Name:YOHAN COPELAND Sonal, 12/04/2024 01:40:00 PM, [address], [place], [address], Insurance Providers Payer Name Payer Address Payer Phone Subscriber Number Group Number Insured Name Patient Relationship to Insured Coverage Start Date Coverage End Date [facility] [address] [place] [address] [id number] PHIL EPPS Self - patient is the insured Medical (General) History Medical History History ICD Code COVID-19 U07.1 Surgical History Surgery Date(Month/Year) colonoscopy 09/2017 wisdom teeth extraction 01/2015
--- OUTSIDE RECORDS SUMMARY | 2024-10-16 16:19 | XMS_ITS | Clinical Summary ---
Author Organization [facility] Address [address] [place] [address] Phone Care Team Providers Care Heel Caser Name Role Phone Unavailable Primary Care Provider [...] of Strabismus/amblyopia, No family history of *Sudden /MS under 55 Social History Tobacco Use Types [...] Weight 95.2 kg (209 lb 12.8 oz) 022 9:10 AM EST Height 163 cm (5' [...] complete this topic Procedures * Due to [place] [employer] law, this organization might not be sharing sensitive test results. Procedure Name Priority Date/Time Associated Diagnosis Comments RPR Routine 07/14/2021 10:20 AM EST Routine screening for STI (sexually transmitted infection) CHLAMYDIA AND GONORRHEA, AMPLIFIED Routine 07/14/2021 10:06 AM EST Encounter for screening examination for chlamydial infection from Last 3 Months or Most Recently Relevant to Health Maintenance Results * Due to [place] [employer] law, this organization might not be sharing sensitive test results. * RPR (07/14/2021 10:20 AM EST) SYPHILIS SCREEN BY MUMTAZ NEGATIVE (NEG) [facility] Comment: Reference range: Negative This test was performed on the [place] [employer] immunoassay system. RPR Titer NOT INDICATED [facility] T pallidum Antibodies (TP-PA) NOT INDICATED [facility] SYPHILIS INTERPRETATION Indicative of the absence of infection with Treponemal pallidum. Test may be negative in cases of incubating or early primary syphilis. Consider repeat testing in several weeks if clinical suspicion is high. [facility] Comment: Testing performed or reported by [facility], a Service of [facility], [facility] [address], [place] [address] Newton Tilley MD, Storage Battery Inspector And Tester [facility]# [id number] Blood (Blood, Venous) 07/14/2021 10:20 AM EST 07/14/2021 10:31 AM EST us Thi De León RESIDENT ASSISTANT CNA LAB BLOOD ORDERABLES Final Resul t [facility] * Chlamydia and Gonorrhoea, Amplified (07/14/2021 10:06 AM EST) Pathologist [facility] Chlamydia Trachomatis, DNA Probe NEGATIVE (NEG) [facility] Comment: No Chlamydia Trachomatis RNA detected in this patient's sample ? (REFERENCE RANGE/NORMAL VALUE: NOT DETECTED) ? Note: This test uses tilting head band sawyer- mediated amplification method to detect rRNA from C. Trachomatis URINE GC AMP PROBE NEGATIVE (NEG) [facility] Comment: No Neisseria Gonorrhoeae RNA detected in this patient's sample ? (REFERENCE RANGE/NORMAL VALUE: NOT DETECTED) ? NOTE: This test uses tilting head band sawyer-mediated amplification method to detect rRNA from N.Gonorrhoeae. [...] without risk of sexual abuse. Consult the [facility] if needed. Contact phone number . Therapeutic failure or success cannot be determined with the Aptima Combo2 assay since nucleic acid may persist following appropriate antimicrobial therapy. The Centers for Disease Control and Prevention (CDC) recommends confirmatory retesting using culture or a different nucleic acid amplification test when positive results occur, if indicated. Testing performed or reported by [facility], a Service of [facility], [facility] [address], [place] [address] Newton Tilley MD, Storage Battery Inspector And Tester [facility]# [id number] Urine (Urine) 07/14/2021 10: 06 AM EST 07/14/2021 5:24 PM EST us Thi De León NP LAB MICROBIOLOGY - GENERAL ORDER JOSÉ Final Result [facility] from Last 3 Months or Most Recently Relevant to Health Maintenance
--- OUTSIDE RECORDS SUMMARY | 2024-10-16 16:19 | XMS_ITS | Encounter Summary ---
Author Organization [facility] Address [address] [place] [address] Phone Care Team Providers Care Reverse Logistics Analyst Name Role Phone Katty Manning MD Primary Care Provider +1- [phone] Reason for Visit * Reason Comments Med Refill Encounter Details Date Type Department Care Team (Late st Contact Info) Description 12/28/2018 Refill [facility] [address] [place] [address] Mitra Terry MD [address] [place] [address] Encounter for initial prescription of contraceptive pills [...] pills documented in this encounter Care Teams Reverse Logistics Analyst Relationship Specialty Start Date End Date Katty Manning MD [address] [place] [address] PCP - General 01/22/17 12/07/22 documented as of this encounter
--- OUTSIDE RECORDS SUMMARY | 2024-10-16 16:19 | XMS_ITS | Encounter Summary ---
Author Organization [facility] Address [address] [place] [address] Phone Care Team Providers Care Credit Card Control Clerk Name Role Phone Katty Manning MD Primary Care Provider +1- [phone] Encounter Details Date Type Department Care Team (Late st Contact Info) Description 05/19/2011 Documentation [facility] [place] [place] Family Medicine [address] [place], [place] [phone] Family Medicine, Physician [address] [place], [place] [address] Social History Tobacco Use Types Packs/Day Years [...] on filedocumented in this encounter Care Teams Credit Card Control Clerk Relationship Specialty Start Date End Date Katty Manning MD [address] [place] [address] [place] [address] PCP - General 01/22/17 12/07/22 documented as of this encounter
--- OUTSIDE RECORDS SUMMARY | 2024-10-16 16:19 | XMS_ITS | Encounter Summary ---
Author Organization [facility] Address [address] [place] [address] Phone Care Team Providers Care Truck Body Builder Apprentice Name Role Phone Katty Manning MD Primary Care Provider +1- [phone] Reason for Visit * Reason Comments Med Refill Encounter Details Date Type Department Care Team (Late st Contact Info) Description 11/08/2017 Refill [facility] [address] [place] [address] Jennifer Davenport NP [address] [address] Encounter for initial prescription of contraceptive pills [...] pills documented in this encounter Care Teams Truck Body Builder Apprentice Relationship Specialty Start Date End Date Katty Manning MD [address] [facility] [place] [address] PCP - General 01/22/17 12/07/22 documented as of this encounter
--- OUTSIDE RECORDS SUMMARY | 2024-10-16 16:19 | XMS_ITS | Patient Health Record ---
Author Organization [facility] Address [address] [facility] [place] [address] Care Team Providers Care Property Management Specialist Name Role Phone Nigel BYRNE, Katty Primary Care Provider David Chavarria Unavailable [phone] Allergies Allergen (clinical drug ingredient) Drug/Non Drug Allergy documented on EMR Reaction Allergy Type Onset Date Status Information temporarily unavailable Apple (Diagnostic) Unknown Drug Allergy Active Information temporarily unavailable Cantaloupe (Diagnostic) Unknown Drug Allergy Active Reason [...] Insured Coverage Start Date Coverage End Date [facility] [address] [place] [address] [phone] [id number] Myrna Owusu Self - patient is the insured Medical (General) History Medical History History ICD Code Anemia Anxiety Depression high Cholesterol Surgical History Surgery Date(Month/Year)
--- OUTSIDE RECORDS SUMMARY | 2024-10-16 16:19 | XMS_ITS | Clinical Summary ---
Author Organization [employer] Address [address] [facility] 7t [place] [address] Care Team Providers Care Brand Ambassadors Promotional Sales Name Role Phone Delfina Sen MD Primary [...] 9:59 AM EDT): Patient follows with gynecology [facility] Dr Kelley Shi reports last PAP [...] patients she has recent NEGATIVE results by PCP/FRAME BUILDER. Negative results or rapid HIV testing today [...] weight. 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 Advised healthy eating and exercise Last Assessment & Plan: Should recheck, is trying to eat healthier. Anxiety disorder 06/27/2020 Encounters Date Type Department Care Team Description 09/15/2024 9:45 AM EDT Office Visit [facility] [address] [place] [address] Delfina Sen MD Right hip pain (Primary Dx); Gastroesophageal reflux disease, unspecified whether esophagitis present; Anxiety; Cervical cancer screening; Diminished vision 09/15/2024 Travel 09/08/2024 Travel 09/07/2024 Patient Outreach [facility] [address] [place] [address] Delfina Sen MD Pre-visit Planning ((Unable to reach for PVP screening, LVM)) 08/04/2024 8:40 AM EST Office Visit [facility] [address] [place] [address] Nani Kwan MD Nausea and vomiting, unspecified vomiting type (Primary Dx) from Last 3 Months Immunizations Name Administration [...] Screening 01/20/2025 01/21/2024 Depression Screening 01/20/2025 01/21/2024, 01/21/20 Tobacco Screening 09/15/2025 09/15/2024 Lipid Panel 03/03/2029 [...] Weakly Positive Urine 08/04/2024 9:34 AM EST Nani Kwan MD POINT OF CARE TEST [...] 10:13 AM EDT) Triglycerides 63 <150 mg/dL [facility] Comment:Desirable Triglyceri de: less than 150 mg/dLBorderline High Triglyceride 150-199 mg/dLHigh Triglyceride: 200-499 mg/dLVery High Triglyceride: greater than or equal to 5OO mg/dL Cholesterol 169 <200 mg/dL [facility] Comment:Desirable Cholestero l: less than 200 mg/dLBorderline High Cholesterol: 200-239 mg/dLHigh Cholesterol: greater than 239 mg/dL LDL Cholesterol Calculated 104(H) <100 mg/dL [facility] Comment:Desirable LDL: less than 100 mg/dLNear Optimal/Above Optimal LDL: 110- 129 mg/dLBorderline High LDL: 130-159 mg/dLHigh LDL: 160-189 mg/dLVery High LDL: greater than or equal to 190 mg/dL HDL Cholesterol 53 >40 mg/dL [facility] Comment:Desirable HDL: great er than 40 mg/dL Note: This HDL assay may give artificially low results in patients with liver disease. Blood 03/03/2024 10:1 3 AM EDT 03/03/2024 11:27 AM EDT us Delfina Danielle MD LAB BLOOD ORDERABLES Final Result Performing Organization Address City/[facility]/ZIP Co de Phone Number [facility] [address] [place] [address] [phone] * HEPATITIS C AB W/REFL TO [...] a test for HCV RNA (test code 93821) is suggested. ?? For additional information please refer to http://education.tado/faq/NAN49d1 (This link is being provided for informational/ educational purposes only.) ?? 04/27/2022 10:3 4 AM EST us Jewell Hawkins MD HISTORICAL/NON ORDERABLE LABS Final Result Performing Organization Address City/[facility]/ZIP Co de Phone Number [facility]VERT[facility]GACY LABS [...] old. ?? 04/27/2022 10:3 4 AM EST Jewell Hawkins MD LAB BLOOD ORDERABLES Final Re sult CON[facility]GACY LABS from Last 3 Months or Most Recently Relevant to Health Maintenance Insurance [facility] , [address] [place] [address] Care Teams Brand Ambassadors Promotional Sales Relationship Specialty Start Date End Date Delfina Sen MD [address] [place] [phone] PCP - General Internal Medicine 01/24/24
--- OUTSIDE RECORDS SUMMARY | 2024-10-16 16:20 | XMS_ITS | Data Portability ---
Author Organization [facility] [address] Address [address] [place] [address] Assessment No assessment recorded. Plan of Treatment Reminders Order Date Submit Date Provider Last Modified By Organization Details Last Modified Time Details Appointments None recorded. Lab None recorded. Referral None recorded. Procedures None recorded. Surgeries None recorded. Imaging XR, foot, 3 or more view 2022 023 [facility], [address] [place] [address], [address], 15:58:52 Medication Orders ibuprofen 800 mg tablet 2022 023 [email or web address] [id number], [address] [facility], [place], [address], 14:40:38 Patient TargetsNo targets recorded. Patient Instructions Encounter Date Encounter Id Patient Instructions Last Modified By Organization Details Last Modified Time 07/06/2022 [id number] learning about rice (rest, ice, compression, and [...] doctor might recommend that you take an yrbv-dgg-rdwkjhi pain medicine. Aaoh-nps-ssmuham pain medicines include acetaminophen (sample brand name: [...] too tight or too loose. information from ([facility], 2021) Not available 07/06/2022 13:36:35 Overview Foot injuries [...] your doctor if you can take an yisl-ani-jnouoxx medicine. Rest and protect your foot. Take [...] injury that last longer than 2 weeks. Not available 07/06/2022 13:35:10 Reason for Referral None Reported. Results Created Date Observation Date Name Description Value Unit Range Abnormal Flag Note LastModifiedBy Organization Detail LastModifiedTime 07/06/1907/06/2022 XR, foot, 3 or more view No observ ation record ed. [email or web address] [facility] [address] [place], [address], 07/07/2022 17:52:45 07/08/1907/06/2022 XR, foot, 3 or more view No observ ation record ed. [email or web address] [facility] [address] [place], [address], 07/08/2022 16:06:03 07/08/19 23 07/06/2022 imagi ng/di agnos tic resul t No observ ation record ed. [email or web address] Not Available 2022 16:25:21 Result Notes None recorded. Problems No Known Problems Procedures Surgical History Date Name Laterality Status Provider Name and Address Organization Details Recorded Time Roel Bandage completed Rigo Elijah, ELECTRIC MULE OPERATOR [address], [place], [address], [place] - [facility] 07/06/2022 14:37:46 Imaging Results Imaging Date Name Status LastModified by Organiz ation Details LastModified Time 07/06/2022 XR, foot, 3 or more view completed [email or web address] [facility] [address] [place], [address], 07/07/2022 17:52:45 07/06/2022 XR, foot, 3 or more view completed [email or web address] [facility] [address] [place], [address], 07/08/2022 16:06:03 07/06/2022 imaging/diag nostic result completed [email or web address] Information not available 07/08/2022 16:25:21 Procedure Notes [...] and Address Organization Details Last Updated DateTime 165.1 cm 38.3 kg/m2 751473. 25 g 99 % 99 % 70 /min 20 /min 98.2 [degF] 125 mm[Hg] 91 mm[Hg] Karoline Fitzpatrick PA - [facility] 3 12:10:31 Social History Question Answer Notes LastModified by Organizat ion Details LastModified Time Tobacco Smoking Status [...] Recorded Time meningococcal MCV4P 8 completed Karoline dorman PA - [facility] 07/06/2022 12:08:00 COVID-19, mRNA, LNP-S, PF, 100 mcg/0.5mL dose or 50 mcg/0.25mL dose 1 completed Karoline Nanette dorman PA - [facility] 07/06/2022 12:08:00 COVID-19, mRNA, LNP-S, PF, 100 mcg/0.5mL dose or 50 mcg/0.25mL dose 1 completed Karoline dorman PA - [facility] 07/06/2022 12:08:00 Influenza, MDCK, quadrivalent, PF 2 completed Karoline [place] null, PA - [facility] 07/06/2022 12:08:00 Influenza, split virus, quadrivalent, PF 1 completed Karoline [place] null, PA - [facility] 07/06/2022 12:08:00 Influenza, split virus, quadrivalent, PF 0 completed Karoline [place] null, PA - [facility] 07/06/2022 12:08:00 COVID-19, mRNA, LNP-S, PF, 30 mcg/0.3 mL dose, lisa-sucrose 2 completed Karoline Nanette null, PA - [facility] 07/06/2022 12:08:00 Past Encounters Encounter ID Performer Location Encounter Start Date Encounter Closed Date Diagnosis/Indication Diagnosis SNOMED-CT Code Diagnosis ICD10 Code Diagnosis Note [id number] [address] [place] [address] 04/06/2022 11:13:18 04/06/2022 11:34:09 [id number] [address] [place] [address] 05/18/2015 13:01:46 05/18/2015 14:11:34 [id number] [address] [place] [address] 04/06/2022 08:40:15 04/06/2022 11:34:06 [id number] Rigo Nava, ELECTRIC MULE OPERATOR [address] [place] [address] 07/06/2022 11:21:03 07/06/2022 14:50:58 Contusion of left foot 9588695758 6713211 S90.32XA Contusion of lesser toe of left foot 6197466221 7043123 S90.122A Health Concerns Section Related Observation LastModified by Organization Detai ls LastModified Time None Recorded Concern Status LastModified by Organization Details LastModified Time None Recorded Advance Directives Directive None Recorded Payers Encounter Date Sequence Insurance Name Policy Number Policy Hazel Covered Member ID Hazel Member ID Guarantor Name 04/06/2022 1 [facility] [id number] 1 Myrna M Owusu [id number] Myrna Owusu 04/06/2022 1 [facility] [id number] 1 Myrna M Owusu [id number] Myrna Owusu 07/06/2022 1 [facility] [id number] 1 Myrna M Owusu [id number] Myrna Owusu Notes Date Note Type Note Provider Name and Address Organization Details Recorded Time 07/06/2022 text/html ToesReported bypatient.Notes:st ubbed left 4th toe after experiencing fall yesterday going downstairs. Rigo Nava NP [address] [place], [address], [place] - [facility] 07/06/2022 14:40:49 OBGyn Episode No OBEpisode recorded.
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
--- OUTSIDE RECORDS SUMMARY | 2024-10-16 16:20 | XMS_ITS | Encounter Summary ---
Author Organization [facility] Address [address] [place] [address] Phone Care Team Providers Care Mds Nurse Name Role Phone Katty Manning MD Primary Care Provider +1- [phone] Encounter Details Date Type Department Care Team (Late st Contact Info) Description 05/18/2012 Documentation [facility] [place] Family Medicine [address] [place], [place] [phone] Family Medicine, Physician [address] [place], [place] [address] Social History Tobacco Use Types Packs/Day Years [...] on filedocumented in this encounter Care Teams Mds Nurse Relationship Specialty Start Date End Date Katty Manning MD [address] [place] [address] [place] [address] PCP - General 01/22/17 12/07/22 documented as of this encounter
--- OUTSIDE RECORDS SUMMARY | 2024-10-16 16:20 | XMS_ITS | Encounter Summary ---
Author Organization [facility] Address [address] [place] [address] Phone Care Team Providers Care Vp Software Name Role Phone Katty Manning MD Primary Care Provider +1- [phone] Encounter Details Date Type Department Care Team (Late st Contact Info) Description 11/10/2016 Documentation [facility] [place] Family Medicine [address] [place], [place] [phone] Family Medicine, Physician [address] [place], [place] [address] Social History Tobacco Use Types Packs/Day Years [...] on filedocumented in this encounter Care Teams Vp Software Relationship Specialty Start Date End Date Katty Manning MD [address] [place] [address] [place] [address] PCP - General 01/22/17 12/07/22 documented as of this encounter
--- OUTSIDE RECORDS SUMMARY | 2024-10-16 16:20 | XMS_ITS | Encounter Summary ---
Author Organization [facility] Address [address] [place] [address] Phone Care Team Providers Care Fiber Optic Splicer Name Role Phone Katty Manning MD Primary Care Provider +1- [phone] Encounter Details Date Type Department Care Team (Late st Contact Info) Description 02/10/2010 Documentation [facility] [place] Family Medicine [address] [place], [place] [phone] Family Medicine, Physician [address] [place], [place] [address] Social History Tobacco Use Types Packs/Day Years [...] on filedocumented in this encounter Care Teams Fiber Optic Splicer Relationship Specialty Start Date End Date Katty Manning MD [address] [place] [address] [place] [address] PCP - General 01/22/17 12/07/22 documented as of this encounter
== END ==
LOC: HO.CARD 14:45
PROVIDERS: PCP Internal Medicine; Visit Provider Internal Medicine
DX: R07.2 Precordial pain (principal)
CPT/HCPCS: 93306; Q9957

== ENCOUNTER → 2024-10-16 14:48 | Outpatient (BNV) | payer OTHER, SELFPAY | PROVIDERS: PCP Internal Medicine; Visit Provider Internal Medicine | DX: R07.2 Precordial pain (principal) | CPT/HCPCS: 93306 ==

== ENCOUNTER 2024-11-17 09:15 | Outpatient (REF) | payer OTHER, SELFPAY ==
--- NOTE | ~2024-11-17 | XR_ITS ---
EXAMINATION: XR HIP, RIGHT CLINICAL INFORMATION: M25.551 - Pain in right hip COMPARISON: None available. TECHNIQUE: Two views of the right hip. FINDINGS: There is sacralization of the lowest lumbar segment with pseudoarticulation along the sacrum. There is subchondral sclerosis involving the right SI joint. The right hip joint demonstrates mild flattening of the superior lateral femoral head. Joint spaces preserved. There are small marginal osteophytes involving the femoral head. Left femoral head also demonstrates mild flattening of the superior lateral femoral head contour and small marginal osteophyte formation. Joint spaces preserved. XR/XR hip RT min 2V IMPRESSION: Very mild changes of osteoarthritis involving both hip joints. There is mild loss of sphericity of both femoral heads with mild focal flattening of the superior lateral femoral heads which could be congenital or developmental. Sacralized L5 segment. Associated mild degenerative sclerosis of the right SI joint. Electronically signed by: Larry Sylvester MD 11/17/2024 02:14 PM EDT
--- OUTSIDE RECORDS SUMMARY | 2024-11-17 09:46 | XMS_ITS | Encounter Summary ---
Author Organization [facility] Address [address] [place] [address] Phone Care Team Providers Care Rn Diabetes Educator Name Role Phone Katty Manning MD Primary Care Provider +1- [phone] Reason for Visit * Reason Comments Med Refill Encounter Details Date Type Department Care Team (Late st Contact Info) Description 12/28/2018 Refill [facility] [address] [place] [address] Mitra Terry MD [address] [place] [address] Encounter for initial prescription of contraceptive pills [...] pills documented in this encounter Care Teams Rn Diabetes Educator Relationship Specialty Start Date End Date Katty Manning MD [address] [place] [address] PCP - General 01/22/17 12/07/22 documented as of this encounter
== END 2024-11-17 09:16 | disposition home or self-care (01) ==
LOC: HO.HOSX 09:15
PROVIDERS: Visit Provider Physician Assistant
DX: M25.551 Pain in right hip (principal)
CPT/HCPCS: 73502

== ENCOUNTER 2024-11-17 13:22 | Outpatient (AMB) | payer OTHER, SELFPAY ==
--- NOTE | 2024-11-17 14:15 | A.OFFVIS_ITS ---
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 Patient was seen by her PCP with complaints of intermittent pain in her inner groin area. Patient reports her pain has been present since 2022, no injury. She has constant discomfort, her pain increases with raising her leg and getting up from a prolong sitting position. No numbness or tingling. No other treatment. 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 She states the hip has been popping and she has not made much of it up until recently she has pain with sleeping . She also c/o pain with sitting for long periods of time. She states once she gets moving the pain does subside. She states with deep flexion she has felt increased pain in the groin region. She denies n/t down the leg or in the back. PFSH Surgical History H/O colonoscopy Family History Mother Diabetes Father No problems noted. 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 No tenderness over the greater troch. No tenderness over the SI joint. She does have pain with internal rotation. She has pain with flexion and external rotation. Neurovascularly intact. Results Reviewed Results Reviewed: X-rays of the right hip obtained in the office today and reviewed by me show sclerotic changes around the acetabulum with evidence of impingement Assessment & Plan Assessment & Plan (1) Right hip impingement syndrome: Code(s): M25.851 - Other specified joint disorders, right hip Category: Medical Plan: I discussed with the patient the extent of her symptoms and diagnosis and encouraged her to work with physical therapy for strengthening and conditioning exercises to help balance the pelvic region and hip. Orders: Orders PT Evaluation and Treatment Today M25.851 - Other specified joint disorders, right hip XR hip RT min 2V Today M25.551 - Pain in right hip Medications: New ibuprofen 800 mg PO Q8H PRN 90 tabs 3RF pain 30 days S52.209D - Unspecified fracture of shaft of unspecified ulna, subsequent encounter for closed fracture with routine healing Coding Level of Care Code New Pt Level 3 (97625) Complex EM visit Add On G2211 Diagnoses Right hip impingement syndrome M25.851
[2024-11-17 14:19] VITALS: BMI 43.3
== END 2024-11-17 14:31 | disposition home or self-care (01) ==
LOC: HO.HOS 13:22
PROVIDERS: PCP Pediatrics; Visit Provider Physician Assistant
DX: M25.851 Other specified joint disorders, right hip (principal)
CPT/HCPCS: 99203

== ENCOUNTER → 2024-11-17 13:47 | Outpatient (BNV) | payer OTHER, SELFPAY | PROVIDERS: Visit Provider Radiology Diagnostic Radiology | DX: M25.551 Pain in right hip (principal) | CPT/HCPCS: 73502 ==

== ENCOUNTER 2025-02-07 16:00 | Outpatient (RCR) | payer OTHER, SELFPAY ==
--- NOTE | 2024-12-20 17:02 | MHC.PT.EP ---
[facility] [place] [facility] [place] [facility] [place] [facility] [address] [place] [address] [phone] F: [phone] F: [phone] F: [phone] F: [phone] Physical Therapy Plan of Care Date of Evaluation: 12/20/24 Date of Surgery: N/A Diagnosis: right hip impingement syndrome (RL) Assessment: pt is a 24 y/o female presenting to physical therapy w/ referring diagnosis of right hip impingement syndrome. Impairments include pain, decreased range of motion, decreased strength, impaired functional mobility, impaired postural awareness, and altered ambulation mechanics. pt is a good candidate for skilled PT due to age, potential remediation of impairments, typical disease/condition progression and prognosis, comorbidities, and motivation. pt would benefit from skilled PT intervention to provide a tailored strengthening and stretching exercise program, functional training, gait training, postural re-training, neuromuscular re-education, modalities as needed for pain, equipment safety demonstration. Frequency and Duration: The patient will be seen 2x/wk for 4 wks Short Term Goals: pt will be I w/ HEP to promote self-management of condition. pt will improve R hip ABD strength by 1 MMT to reduce genu valgus tendencies. Fci Goals: pt will report a statistically significant improvement in self-reported outcome measure, LEFI, to promote return to PLOF. 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 Treatment Plan: Modalities to reduce pain, spasms and effusion. Manual therapy to restore motion and function. Therapeutic exercise to improve strength and flexibility. Neuromuscular re-education for posture and balance. Therapeutic activities to return to functional activities of daily living. Electronically signed by: Marianela Louis PT, DPT Please sign and return to therapist. Thank you for your referral.
--- NOTE | 2025-02-21 10:10 | MHC.PT.DC ---
[facility] [place] [facility] [place] [facility] [place] [facility] [address] [place] [address] [facility] [phone] F: [phone] F: [phone] F: [phone] F: [phone] Physical Therapy Discharge Report Diagnosis: right hip impingement syndrome (RL) Date of Surgery: N/A Date of Evaluation: 12/20/24 Date of Discharge: 02/21/25 Treatments to Date: 6 Cancellations to Date: 3 No Shows to Date: 0 Discharge Status: Improved Function Independent with HEP Discharge Summary: Per last treatment note: The patient overall has been reporting minimal hip pain and independence with her home exercise program. We reviewed bed mobility to reduce strain on hips. She has 1 more appointment next week. I advised her to keep it and cancel if she continues to do well. pt verbalized understanding. Patient called to discharge herself as she is feeling better and feels confident in her self-management skills. Electronically signed by: Marianela Louis PT, DPT Please sign and return to therapist. Thank you for your referral.
== END 2025-02-21 10:10 | disposition home or self-care (01) ==
LOC: HO.PT 16:00
PROVIDERS: PCP Internal Medicine; Visit Provider Physician Assistant
DX: M25.851 Other specified joint disorders, right hip (principal)
CPT/HCPCS: 97110; 97140; 97161; 97530